=== PATIENT | female | born 1945 | race Caucasian/White ===

== ENCOUNTER 2025-05-01 15:07 | Emergency (ER) | payer MEDICARE, OTHER, MEDICAID, SELFPAY ==
--- NOTE | ~2025-05-01 | CT_ITS ---
EXAMINATION: CT abdomen pelvis w con DATE: 05/01/2025 22:07 INDICATION: Left lower quadrant abdominal pain. TECHNIQUE: Computed tomography (CT) of the abdomen and pelvis was performed with 100 mL Omnipaque 350 intravenous contrast. Automated exposure control and iterative reconstruction technique were employed. The dose-length product was 1091.81 mGy-cm. COMPARISON: None. FINDINGS: The visualized portions of lung bases demonstrate mild atelectasis. No pleural effusion. The heart size is normal. There are coronary artery calcifications. No pericardial effusion. Calcifications in the liver and spleen are consistent with old granulomatous disease. There are cysts in the liver measuring up to 5 mm. The gallbladder, pancreas, and adrenal glands are normal. There is a 2 mm stone in right kidney. There are cysts in left kidney measuring up to 7 mm. There is mild left hydronephrosis. There is wall thickening involving the distal transverse colon, descending colon, and sigmoid colon, consistent with colitis. The appendix is normal. There are no dilated loops of bowel. There are no pathologically enlarged lymph nodes. There is no ascites. There are bilateral hip arthroplasties. There is severe lumbar spondylosis. IMPRESSION: 1. Colitis involving the distal descending colon, descending colon, and sigmoid colon. 2. Mild left hydronephrosis. Reviewed, dictated and finalized at location E.
--- OUTSIDE RECORDS SUMMARY | 2025-05-01 15:11 | XMS_ITS | Clinical Summary ---
Author Organization [facility] Address [address] [place] [address] Care Team Providers Care Yard Associate Name Role Phone Denys Green Primary Care Provider [phone] Allergies Active Allergy Reactions Criticality Noted Date Comments Ojtwpdt-Gzq-Urx Reductase Inhibitors Swelling Medium 03/02/2021 Sulfa (Sulfonamide Antibiotics) Rash Medium 02/12 Medications metoprolol XL (TOPROL-XL) 25 mg extended release tablet Take 25 mg by mouth daily Active cholecalciferol (VITAMIN D-3) 2000 unit capsule Take 2,000 Units by mouth daily Active calcium carbonate (CALCIUM 500 ORAL) Take by mouth daily Active citalopram (CeleXA) 40 mg tablet Take 40 mg by mouth daily Active meloxicam (MOBIC) 15 mg tablet Take 15 mg by mouth daily Active valsartan (DIOVAN) 320 mg tablet Take 320 mg by mouth daily Active HYDROcodone-acet aminophen (NORCO) 10-325 mg per tabletIndication s:Pain Take 1 tablet by mouth every 6 (six) hours as needed for pain Active gabapentin (NEURONTIN) 300 mg capsule Take 300 mg by mouth 3 (three) times a day Active baclofen (LIORESAL) 10 mg tablet Take 10 mg by mouth 3 (three) times a day Active Active Problems Problem Noted Date Diagnosed Date Bilateral hip pain 12/01/2020 Assessment & Plan (12/01/2020 3:51 PM CDT): Ms. Consuelo Johnson has bilateral hip pain as her major complaint with pelvic and coccyx pain. She is status post fall in June of 2020. Her MRI imaging of her lumbar spine does not show significant compressive pathology to explain her symptoms. We will refer her to Orthopedic surgery for a formal evaluation as she has severe hip pain, decreased range of motion of her hips and a markedly positive KARIN sign bilaterally. We will not order films as I am worried that I will the wrong type of films. If the consult requires films prior to the visit, I would be happy to order the requested films. We will not set up a scheduled appointment, but I would be happy to see her back at any point in the future on as-needed basis. 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 Anxiety Depression Graves disease Left eye bulge - double vision at times Aneurysm of splenic artery 1.5 m m Sinus problem Arthritis Hypertension Peptic ulceration Osteoporosis Migraines Family History Medical History Relation Name Comments Stroke Father Cancer Maternal Grandmother Hypertension Mother Stroke Mother Arthritis Other Relation Name Status Comments Father Maternal Grandmother Mother Other Social History Tobacco Use Types Packs/Day Years Used Date Smoking Tobacco: Every Day Cigarettes PHQ-2 Answer Date Recorded PHQ-2 Total Score (If total score is 3 or more points, staff should administer the PHQ-9) 3 12/01/2020 Personal Safety Answer Date Recorded Getting School Help Needed Not on file 08/13 Comments Unknown Sex and Gender Information Value Date Recorded Sex Assigned at Not on file Legal Sex Female 6:03 PM BET TAKER Gender Identity Not on file Sexual Orientation Not on file Obstetrics History Last Filed Vital Signs Vital Sign Reading Time Taken Comments Blood Pressure 199/69 03/02/2021 2:36 PM CDT Pulse 78 03/02/2021 2:36 PM CDT Temperature - - Respiratory Rate 12 12/01/2020 3:19 PM CDT Oxygen Saturation - - Inhaled Oxygen Concentration - - Weight 55.8 kg (123 lb) 03/02/2021 2:16 PM CDT Height 166.4 cm (5' 5.5) 03/02/2021 2:16 PM CDT Body Mass Index 20.16 03/02/2021 2:16 PM CDT Plan of Treatment Not on file Insurance MEDICARE [facility] Address: [facility] [address] [place] [address] [employer] [facility] Care Teams Yard Associate Relationship Specialty Start Date End Date Denys Green DO PCP - General Internal Medicine 12/01/20
--- OUTSIDE RECORDS SUMMARY | 2025-05-01 15:11 | XMS_ITS | Clinical Summary ---
Author Organization [facility] Address [facility] [place] [address] Care Team Providers Care Recycle Driver Name Role Phone Richy Miller MD Primary Care Provider [phone] Allergies Active Allergy Reactions Criticality Noted Date Comments Statins Swelling Medium 03/02/2021 Sulfa Antibiotics Rash Medium 03/02/2021 Medications Cholecalciferol 50 MCG (1999) CapIndications:Mi neral Deficiency Take 2,000 Units by mouth daily. Indications: Mineral Deficiency Active TRELEGY ELLIPTA 100-62.5-25 MCG/ACT AEROSOL POWDER, BREATH ACTIVATEDIndicati ons:Shortness of breath Inhale 1 puff into the lungs daily. Indications: Shortness of breath 08/06/20 22 Active meloxicam (MOBIC) 15 MG tabletIndications :Pain Take 1 tablet (15 mg total) by mouth daily. Indications: Pain 06/09/20 22 Active triamcinolone (KENALOG) 0.1 % creamIndications: Rash and other nonspecific skin eruption Apply topically 2 (two) times daily as needed. Indications: Rash and other nonspecific skin eruption 09/28/19 22 Active valsartan (DIOVAN) 320 MG tabletIndications :Hypertension Take 1 tablet (320 mg total) by mouth daily. Indications: High Blood Pressure Disorder 06/27/20 22 Active amLODIPine (NORVASC) 5 MG tabletIndications :Hypertension Take 1 tablet (5 mg total) by mouth daily. Indications: High Blood Pressure Disorder Active morphine CR (MS CONTIN) 15 MG tabletIndications :Chronic Pain Take 1 tablet (15 mg total) by mouth 2 (two) times daily. Indications: Chronic Pain 07/19/20 23 Active OXYGENIndications :COPD exacerbation, uncomplicated 2 L/min by Nasal route as needed. Indications: COPD exacerbation, uncomplicated 03/19/20 Active metoprolol tartrate (LOPRESSOR) 50 MG tabletIndications :HTN Take 1 tablet (50 mg total) by mouth 2 (two) times daily. Indications: HTN 03/27/20 Active citalopram (CELEXA) 20 MG tabletIndications :Depression Take 1 tablet (20 mg total) by mouth daily. Indications: Depression 05/25/20 Active furosemide (LASIX) 20 MG tablet Take 1 tablet (20 mg total) by mouth daily. Active albuterol sulfate HFA 108 (90 Base) MCG/ACT inhaler inhale 2 puffs by mouth every 4 hours 01/01/20 Active Active Problems Problem Noted Date Diagnosed Date Primary osteoarthritis of left hip 06/29/2023 S/P total hip arthroplasty 03/17/2023 Family History Medical History Relation Comments Stroke Father Stroke Mother Relation Status Comments Father Mother Social History Tobacco Use Types Packs/Day Years Used Date Smoking Tobacco: Former Cigarettes Q uit: 08/13/2022 Passive Smoke Exposure: Never Smokeless Tobacco: Never Tobacco Cessation:Counseling Given: No Comments:Former, Quit 2021 Alcohol Use Standard Drinks/Week Comments Never 0 (1 standard drink = 0.6 oz pur e alcohol) none OASIS D0700: Social Isolation Answer Da te Recorded Frequency of experiencing loneliness or isolatio n Never 08/01/2023 OASIS A1250: Transportation Answer Date Recorded Lack of Transportation (Medical) No 08/01/2023 Lack of Transportation (Non-Medical) No 08/01/2023 Patient Unable or Declines to Respond No 08/01/2023 OASIS B1300: Health Literacy Answer Jw e Recorded Frequency of needing help to read materials from doctor or pharmacy Never 08/01/2023 [facility] Utilities Answer Date Recorded In the past 12 months has th e [employer], gas, oil, or water [employer] threatened to shut off services in your home? No 07/25/2023 Humiliation, Afraid, Rape, and Kick questionnair e Answer Date Recorded Within the last year, have y ou been afraid of your partner or ex-partner? No 07/25/2023 Within the last year, have y ou been humiliated or emotionally abused in other ways by your partner or ex-partner? No Within the last year, have y ou been kicked, hit, slapped, or otherwise physically hurt by your partner or ex-partner? No 07/25/2023 Within the last year, have y ou been raped or forced to have any kind of sexual activity by your partner or ex-partner? No 07/25/2023 Overall Financial Resource Strain (CARDIA) Answe r Date Recorded How hard is it for you to pa y for the very basics like food, housing, medical care, and heating? Not very hard 07/25/2023 PHQ-2 Answer Date Recorded Patient Health Questionnaire-2 Score 0 09/11/2023 Hunger Vital Sign Answer Date Recorded Within the past 12 months, y ou worried that your food would run out before you got the money to buy more. Never true 07/25/20 23 Within the past 12 months, t he food you bought just didn't last and you didn't have money to get more. Never true 07/25/2023 PRAPARE - Transportation Answer Date Re corded In the past 12 months, has l ack of transportation kept you from medical appointments or from getting medications? No 07/14 In the past 12 months, has l ack of transportation kept you from meetings, work, or from getting things needed for daily living? No 07/25/2023 Housing Stability Vital Sign Answer Jw e Recorded In the last 12 months, was t here a time when you were not able to pay the mortgage or rent on time? No 07/25/2023 In the last 12 months, how many places have you lived? 1 07/25/2023 In the last 12 months, was t here a time when you did not have a steady place to sleep or slept in a long-term (including now)? No 07/25/2023 Comments No Sex and Gender Information Value Date Recorded Sex Assigned at Not on file Legal Sex Female 1:15 PM CHILD PSYCHOLOGIST Gender Identity Not on file Sexual Orientation Not on file Last Filed Vital Signs Vital Sign Reading Time Taken Comments Blood Pressure 128/68 02/05/2024 9:15 AM CDT Pulse 45 02/05/2024 9:15 AM CDT Temperature 36.7 C (98 F) 02/05/2024 9:15 AM CDT Respiratory Rate 18 08/01/2023 10:21 AM CHILD PSYCHOLOGIST Oxygen Saturation 95% 02/05/2024 9:15 AM CDT Inhaled Oxygen Concentration - - Weight 77.4 kg (170 lb 9.6 oz) 02/05/2024 9:15 A M CDT Height 165.1 cm (5' 5) 02/05/2024 9:15 AM CDT Body Mass Index 28.39 02/05/2024 9:15 AM CDT Plan of Treatment Health Maintenance Due Date Last Done Comments Hepatitis C 1965 Zoster Vaccines (1 of 2) 1997 Annual Medicare Wellness Visit 2012 Dexa Scan (General) 2012 RSV Immunization or 60+ Years (1 - 1-dose 75+ series) 2022 PHQ-2 (Physician [place]) 08/14/2024 09/11/2023 COVID-19 Vaccine (3 - 2024-2 6 season) 2025 05/17/2021, 04/26/2021 DTaP, Tdap and Td Vaccines ( 3 - Td or Tdap) 12/27/2027 12/26/2017, 12/25/2017 Pneumococcal Vaccine: 50+ Years Completed 08/01/2017, 05/14/2016 Meningococcal B Vaccine Aged Out No l onger eligible based on patient's age to complete this topic Meningococcal Vaccine Aged Out No patel racheal eligible based on patient's age to complete this topic RSV Immunizations Under 20 Months Aged Out No longer eligible b ased on patient's age to complete this topic Medical Devices Implanted Type Area Box Sealing Machine Feeder Device Identifier Shelf Expiration Date Model / Serial / Lot Acetabular Shell Multi Hole 58mm Implanted:Qt y: 1 on 03/17/2023 by Сергей Bella MD at [facility] Hip Components Right: Acetabulum DEPUY [id number] 05/13/2029 8 / / [id number] Liner Depuy Acetabular Altrx Neut 36x58 - [id number] Implanted:Qt y: 1 on 03/17/2023 by Сергей Bella MD at [facility] Hip Components Right: Hip DEPUY [id number] 10/12/2027 [id number] / / [id number] Femoral Stem 07/27 Taper Actis Duofix Prosthesis Cementles Size 7 Std Implanted:Qt y: 1 on 03/17/2023 by Сергей Bella MD at [facility] Hip Components Right: Hip DEPUY SYNTHES [id number] 09/13/2032 1010-06-20 0 / / [id number] Head Depuy Femoral Delta 36mm +5 - [id number] Implanted:Qt y: 1 on 03/17/2023 by Сергей Bella MD at [facility] Hip Components Right: Hip DEPUY [id number] 01/12/2028 [id number] / / [id number] Cup Acetabular Shell Depuy 56mm - [id number] Implanted:Qt y: 1 on 07/25/2023 by Сергей Bella MD at [facility] Hip Components Left: Hip DEPUY [employer] [id number] 08/13/2032 6 / / [id number] Actis Femoral Stem Implanted:Qt y: 1 on 07/25/2023 by Сергей Bella MD at [facility] Hip Components Left: Hip DEPUY SYNTHES [id number] 02/10/2033 1010-06-20 0 / / [id number] Liner Depuy Acetabular Altrx Neut 36x56 - [id number] Implanted:Qt y: 1 on 07/25/2023 by Сергей Bella MD at [facility] Hip Components Left: Hip DEPUY [id number] 04/13/2028 [id number] / / [id number] Head Depuy Femoral Delta 36mm +8.5 - [id number] Implanted:Qt y: 1 on 07/25/2023 by Сергей Bella MD at [facility] Hip Components Left: Hip DEPUY [id number] 05/13/2028 [id number] / / [id number] Screw Depuy Cancellous Bone 6.5mm X 25mm - [id number] Implanted:Qt y: 1 on 03/17/2023 by Сергей Bella MD at [facility] Screw Right: Acetabulum DEPUY [id number] 12/11/2032 [id number] / / [id number] Canncelous Bone Screw [id number] Implanted:Qt y: 1 on 03/17/2023 by Сергей Bella MD at [facility] Screw Right: Acetabulum DEPUY 11/11/2032 0 / / [id number] Screw [place] Depuy 6.5 X 20mm - [id number] Implanted:Qt y: 1 on 03/17/2023 by Сергей Bella MD at [facility] Screw Right: Acetabulum DEPUY [id number] / / Screw Derby Depuy 6.5 X 20mm - [id number] Implanted:Qt y: 1 on 07/25/2023 by Сергей Bella MD at [facility] Screw Left: Hip DEPUY [id number] 11/11/2032 [id number] / / [id number] Screw Depuy Cancellous Bone 6.5mm X 25mm - [id number] Implanted:Qt y: 1 on 07/25/2023 by Сергей Bella MD at [facility] Screw Left: Hip DEPUY [id number] 01/11/2033 [id number] / / [id number] Insurance MEDICARE Advance Directives Documents on File Type Date Recorded Patient Special Services Agent Expl anation Power of Qc Manager 10/13/2022 POA 2022 * Full Code (Latest Code Status on File) Date Activated Date Inactivated Comments 08/23/2023 7:20 PM * Full Code Date Activated Date Inactivated Comments 07/27/2023 5:03 PM 07/28/2023 10:39 AM * Full Code Date Activated Date Inactivated Comments 07/25/2023 3:08 PM 07/26/2023 1:22 PM * Full Code Date Activated Date Inactivated Comments 03/20/2023 8:11 AM 07/25/2023 8:27 AM * Full Code Date Activated Date Inactivated Comments 03/19/2023 9:15 AM 03/20/2023 8:09 AM Care Teams Recycle Driver Relationship Specialty Start Date End Date Richy Miller MD [facility] [place] [address] PCP - General FAMILY MEDICINE SPORTS MEDICINE 08/24/22
[2025-05-01 15:25] VITALS: BP 93/44; PULSE 95; RESP 18; TEMP 37.1; O2SAT 97
[2025-05-01 20:17] LABS: Hematocrit 39.7 % (37.0-47.0); Hemoglobin 13.2 g/dL (12.0-15.0); Mean Corpuscular HGB Conc 33.2 g/dl (32-36); Mean Corpuscular Hemoglobin 28.8 pg (26-34); Mean Corpuscular Volume 86.5 fl (80-100); Platelet Count Result 311 k/mm3 (150-375); Red Blood Count 4.59 M/mm3 (4.2-5.4); White Blood Count 13.2 K/mm3 (4.5-10.0)
[2025-05-01 20:28] LABS: Alanine Aminotransferase 18 U/L (6-35); Albumin Level 3.4 g/dL (3.5-5.1); Alkaline Phosphatase 183 U/L (38-126); Anion Gap 10 mmol/L (4-12); Aspartate Amino Transferase 23 U/L (14-36); Bilirubin,Total 1.0 mg/dL (0.2-1.3); Blood Urea Nitrogen 49 mg/dL (7-17); Calcium 8.4 mg/dL (8.4-10.2); Carbon Dioxide 27 mmol/L (22-30); Chloride 87 mmol/L (98-107); Estimated CRCL calculation 26 ml/min; Estimated Glomerular Filt Rate 34; Glucose 112 mg/dL (65-110); Potassium 4.1 mmol/L (3.4-5.0); Sodium 124 mmol/L (137-145); Total Protein 6.9 g/dL (6.3-8.2)
[2025-05-01 20:33] LABS: Band Neutrophils Percent 6 % (0-6); Lymphocytes Absolute Manual 1.58 K/mm3 (1.1-4.5); Lymphocytes Percent Manual 12.0 % (18-44); Monocytes Absolute Manual 0.52 K/mm3 (0.1-0.90); Monocytes Percent Manual 4 % (3-9); Neutrophils Absolute Manual 11.08 K/mm3 (1.3-6.7); Neutrophils Percent Manual 78 % (46-73); Schistocytes None Seen; Total Cells Counted 100
[2025-05-01] MEDS: LACTATED RINGERS 1,000 ML 999 ML IV CONT (20:41)
[2025-05-01 20:46] VITALS: BP 103/56; PULSE 89; RESP 18; O2SAT 97
[2025-05-01 21:02] LABS: Add Urine Microscopic? YES; Appearance Urine Cloudy (Clear); Glucose Urine UA Negative (Negative); Leukocyte Esterase Ur Trace LEU/UL (Negative); Need Manual Microscopic Reviewed; Nitrate Urine Negative (Negative); Non Pathogenic Casts >20; Specific Grav Ur 1.017 (1.001-1.035)
[2025-05-01 22:09] VITALS: BP 128/58; PULSE 87; RESP 18; TEMP 36.6; O2SAT 97
--- NOTE | 2025-05-02 00:24 | ED_ITS ---
HPI - Abdominal Pain General Chief Complaint: Abdominal Pain Stated Complaint: abd pain Time Seen by Provider: 05/01/25 19:51 History of Present Illness HPI narrative: Patient presenting here with left lower quadrant pain, ongoing for last few days, with nausea vomiting, though it is better today. Her doctor wants her to be checked out for diverticulitis she has no history of this Related Data Allergies Allergy/AdvReac Type Severity Reaction Status Date / Time Ozurptw-IQK-HaK Reductase Allergy Unknown affect Verified 05/01/25 15:10 Inhibitor (Ozyyvsf-Kao-Qjz liver/muscle Reductase Inhibitor) Review of Systems 2 Review of Systems: All systems reviewed & are unremarkable except as noted in HPI and below PMFSH Family History Family History (Updated 02/19/19 @ 15:37 by DOCTOR UNKNOWN) Sibling Family history of bipolar disorder Mother Hypertension Patient's mother is Father Family history of transient ischemic attacks Family history of elevated blood lipids Patient's father is Social History Social History Second hand tobacco smoke exposure: No Smoking end date: 08/14/12 Alcohol intake: never Exam 2 Narrative: EXAMINATION OF ORGAN SYSTEMS/BODY AREAS: Constitutional: Vital signs per nursing GENERAL:[No acute distress, non-toxic appearing.] HEAD: Normal with no signs of head trauma. EYES: EOMI, conjunctiva normal ENT: Hearing grossly intact LUNGS: Nonlabored breathing. HEART: [Regular rate and rhythm] ABD: [Soft], [nontender to palpation] EXT: Normal range of motion SKIN: [No rashes or lesions.] NEURO: [Alert and oriented x 3. No gross focal sensory or strength deficits.] PSYCH: Normal affect Course Vital Signs Vital signs: Vital Signs Temperature 98.8 F 05/01/25 15:25 Pulse Rate 95 05/01/25 15:25 Respiratory Rate 18 05/01/25 15:25 Blood Pressure 93/44 L 05/01/25 15:25 Pulse Oximetry 97 05/01/25 15:25 Temperature 97.8 F 05/01/25 22:09 Pulse Rate 79 05/02/25 03:31 Respiratory Rate 18 05/02/25 03:31 Blood Pressure 111/58 L 05/02/25 03:31 Pulse Oximetry 95 05/02/25 03:31 MDM - Abdominal Pain MDM Narrative Medical decision making narrative: Electronic medical record was reviewed. Patient presented to the ED with complaint of [abdominal pain and vomiting for last few days, now resolved]. Vitals [were within acceptable limits]. Physical exam revealed soft abdomen without focal tenderness. Based on the patient's history and physical exam, my differential includes but is not limited to [gastritis, gastroenteritis, diverticulitis]. [IV access was established by nursing staff. Patient was given IV fluids]. CBC, BMP, lipase, LFTs, bilirubin and alk phos were obtained. Labs were pertinent for sodium 124, creatinine 1.5 however unknown baseline. [Decision was made to obtain a CT-abdomen to evaluate for acute abdominal process. CT-abdomen per radiology interpretation shows acute colitis.] On reevaluation, the patient states that they are feeling much better. She would like to go home. There were no witnessed episodes of vomiting in the emergency department. They are not complaining of any new abdominal pain. Repeat examination did not show any significant guarding or rebound. No new tenderness. At this time I do not feel there is any further emergent treatment to be provided. The patient was given strict return precautions, if they are to develop any worsening abdominal pain, vomiting, or blood in the vomit they are to return to the emergency department immediately. Patient verbally acknowledges understanding these directions. [The patient was informed of the above diagnostic test findings.] No further workup is necessary at this time. They will be discharged home. They were advised to follow-up with their PCP and Gastroenterology in 2 days for repeat labs and re-evaluation. The patient feels that this is appropriate medical decision making and verbalizes an understanding of the discharge instructions. Discharge happened during down time and discharge paperwork provided on paper Lab Data 05/01/25 20:12 05/01/25 20:12 Labs: Lab Results 05/01/25 05/01/25 Range/Units 20:12 20:43 WBC 13.2 H (4.5-10.0) K/mm3 RBC 4.59 (4.2-5.4) M/mm3 Hgb 13.2 (12.0-15.0) g/dL Hct 39.7 (37.0-47.0) % MCV 86.5 (80-100) fl MCH 28.8 (26-34) pg MCHC 33.2 (32-36) g/dl RDW 13.9 (11.5-14.5) % Plt Count 311 (150-375) k/mm3 MPV 9.5 (7.4-10.4) fl Immature Gran % (Auto) Not Reportable Neut % (Auto) Not Reportable Lymph % (Auto) Not Reportable [place] % (Auto) Not Reportable Eos % (Auto) Not Reportable Baso % (Auto) Not Reportable Lymph # (Auto) Not Reportable [place] # (Auto) Not Reportable Eos # (Auto) Not Reportable Baso # (Auto) Not Reportable Abs Immat Gran (auto) Not Reportable Absolute Neuts (auto) Not Reportable Absolute Nucleated RBC Not Reportable Total Counted 100 Neutrophils % (Manual) 78 H (46-73) % Band Neutrophils % 6 (0-6) % Lymphocytes % (Manual) 12.0 L (18-44) % Monocytes % (Manual) 4 (3-9) % Nucleated RBC % Not Reportable Abs Neuts (Manual) 11.08 H (1.3-6.7) K/mm3 Abs Lymphs (Manual) 1.58 (1.1-4.5) K/mm3 Abs Monocytes (Manual) 0.52 (0.1-0.90) K/mm3 Platelet Estimate Increased (Adequate) Large Platelets Present Schistocytes None seen Sodium 124 L (137-145) mmol/L Potassium 4.1 (3.4-5.0) mmol/L Chloride 87 L (98-107) mmol/L Carbon Dioxide 27 (22-30) mmol/L Anion Gap 10 (4-12) mmol/L BUN 49 H (7-17) mg/dL Creatinine 1.49 H (0.7-1.0) mg/dL Estim Creat Clear Calc 26 ml/min Estimated GFR 34 L (59 - ) Glucose 112 H (65-110) mg/dL Lactic Acid 1.0 (0.7-2.0) mmol/L Calcium 8.4 (8.4-10.2) mg/dL Total Bilirubin 1.0 (0.2-1.3) mg/dL AST 23 (14-36) U/L ALT 18 (6-35) U/L Alkaline Phosphatase 183 H (38-126) U/L Total Protein 6.9 (6.3-8.2) g/dL Albumin 3.4 L (3.5-5.1) g/dL Urine Color Dark yellow (Yellow) Urine Appearance Cloudy H (Clear) Urine pH 5.0 (5.0-9.0) Ur Specific [place] 1.017 (1.001-1.035) Urine Protein 1+ H (Negative) mg/dL Urine Glucose (UA) Negative (Negative) mg/dL Urine Ketones Trace H (Negative) mg/dL Ur Blood (Man) Negative (Negative) Urine Nitrate Negative (Negative) Urine Bilirubin 2+ H (Negative) Urine Urobilinogen 1.0 (<2.0) mg/dL Add Ur Microanalysis Reviewed Leukocyte Esterase Rfl Trace H (Negative) BETH/UL Urine RBC 3-5 H (0-2) /hpf Urine WBC 0-5 (0-3) /hpf Ur Squamous Epith Cells Moderate (Few) /hpf Urine Bacteria Rare /hpf Urine Casts >20 Hyaline Casts Present (None) /lpf Discharge Plan Discharge Clinical Impression: Colitis, Hyponatremia Patient Disposition: Home Condition: Stable Instructions: Hyponatremia (ED), Colitis (ED) Patient Language: [place] Follow-up/Referrals: PHYSICIAN NOT ON STAFF,NONSTAFF [Primary Care Provider]
[2025-05-02 00:50] VITALS: BP 131/48; PULSE 78; RESP 18; O2SAT 94
[2025-05-02 03:31] VITALS: BP 111/58; PULSE 79; RESP 18; O2SAT 95
== END 2025-05-02 01:40 | disposition home or self-care (01) ==
LOC: ANHED 20:03
PROVIDERS: Emergency Provider Emergency Medicine
DX: K52.9 Noninfective gastroenteritis and colitis, unspecified (principal); E87.1 Hypo-osmolality and hyponatremia; Z87.891 Personal history of nicotine dependence
CPT/HCPCS: 36415; 74177; 80053; 81001; 83605; 85025; 96360; 99284; J7120; Q9967

== ENCOUNTER 2025-06-16 13:45 | Outpatient (CLI) | payer MEDICARE, OTHER, MEDICAID, SELFPAY ==
[2025-06-16 14:17] LABS: Hematocrit 39.5 % (37.0-47.0); Hemoglobin 12.3 g/dL (12.0-15.0); Mean Corpuscular HGB Conc 31.1 g/dl (32-36); Mean Corpuscular Hemoglobin 27.7 pg (26-34); Mean Corpuscular Volume 89.0 fl (80-100); Platelet Count Result 309 k/mm3 (150-375); Red Blood Count 4.44 M/mm3 (4.2-5.4); White Blood Count 9.2 K/mm3 (4.5-10.0)
[2025-06-16 14:36] LABS: Alanine Aminotransferase 15 U/L (6-35); Albumin Level 3.4 g/dL (3.5-5.1); Alkaline Phosphatase 130 U/L (38-126); Anion Gap 3 mmol/L (4-12); Aspartate Amino Transferase 29 U/L (14-36); Bilirubin,Total 0.5 mg/dL (0.2-1.3); Blood Urea Nitrogen 12 mg/dL (7-17); Calcium 8.5 mg/dL (8.4-10.2); Carbon Dioxide 30 mmol/L (22-30); Chloride 103 mmol/L (98-107); Estimated Glomerular Filt Rate 56; Glucose 105 mg/dL (65-110); Potassium 3.8 mmol/L (3.4-5.0); Sodium 136 mmol/L (137-145); Total Protein 6.9 g/dL (6.3-8.2)
== END 2025-06-16 13:46 | disposition home or self-care (01) ==
PROVIDERS: PCP Family Medicine; Visit Provider Nurse Practitioner Family
DX: K62.5 Hemorrhage of anus and rectum (principal); R19.7 Diarrhea, unspecified; E87.1 Hypo-osmolality and hyponatremia; R74.8 Abnormal levels of other serum enzymes
CPT/HCPCS: 36415; 80048; 80076; 85027

== ENCOUNTER 2025-06-18 10:18 | Outpatient (CLI) | payer MEDICARE, OTHER, MEDICAID, SELFPAY ==
--- OUTSIDE RECORDS SUMMARY | 2008-10-16 18:00 | XMS_ITS | Continuity of Care Document ---
Author Organization [facility] Address [address] [place] [address] Phone Care Team Providers Care Wire Stitcher Operator Name Role Phone Lis Ritchie Unavailable Unavailable Procedures Procedure Date Special Reports Or Forms Office/outpatient Visit, Est Advance Directives Directive Yes / No Effective Date File Name No Information Encounters Encounter Description Practice Location Reason(s) For Visit Diagnoses Date Provider Providers Copied on Encounter [facility], [address] [place] [address] [address], [place], [place], [id number], tel:[phone] SEC [facility] No Information Oct- 6200 9 Erma Vu [address] [facility] , [address], [place], [place], [facility], [place]. tel:[phone] Office/outpat ient Visit, Est [facility], [address] [place] [address] [address], [place], [place], [id number], tel:[phone] SEC [facility] No Information 6200 8 Erma Vu [address] [facility] , [address], [place], [address], [place]. tel:[phone] Family History Family Member Type Diagnosis Age At Onset No Information Payers Payer name Insurance type Covered republican ID Authoriza tion(s) No Information Social History Type Description Quantity Date Captured Comments Sex Female Smoking Status No Information Chief Complaint And Reason For Visit No Information Reason For Referral Reason For Referral No Information History Of Present Illness Encounter Date Complaint History Of Prese nt Illness No Information Functional Status Date Functional Assessmen t No Information Instructions Date Instruction Additional Infor mation No Information Assessments Type Assessment Date No Information Patient Care Teams Name Effective Dates (start - stop) Status Members No Information
--- OUTSIDE RECORDS SUMMARY | 2008-10-16 18:00 | XMS_ITS | Continuity of Care Document ---
Author Organization [facility] Address [address] [place] [address] Phone Care Team Providers Care Section Hand Name Role Phone Lis Ritchie Unavailable Unavailable Procedures Procedure Date Special Reports Or Forms Office/outpatient Visit, Est Advance Directives Directive Yes / No Effective Date File Name No Information Encounters Encounter Description Practice Location Reason(s) For Visit Diagnoses Date Provider Providers Copied on Encounter [facility], [address] [place] [address] [address], [place], [place], [id number], tel:[phone] SEC [facility] No Information Oct-0 6200 9 Erma [address] [facility] , [address], [place], [place], [facility] [place], [place]. tel:[phone] Office/outpat ient Visit, Est [facility], [address] [place] [address] [address], [place], [place], [id number], tel:[phone] [facility] No Information [address] [facility] , [address], [place], [address], [place]. tel:[phone] Family History Family Member Type Diagnosis Age At Onset No Information Payers Payer name Insurance type Covered green party ID Authoriza tion(s) No Information Social History [...]
--- OUTSIDE RECORDS SUMMARY | 2025-06-19 18:34 | XMS_ITS | Clinical Summary ---
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
--- OUTSIDE RECORDS SUMMARY | 2025-06-19 18:34 | XMS_ITS | Clinical Summary ---
Author Organization [facility] Address [facility] [place] [address] Care Team Providers Care Tank Car Inspector Name Role Phone Richy Miller MD Primary Care Provider [phone] Allergies Active Allergy Reactions Criticality Noted Date [...] materials from doctor or pharmacy Never 08/01/2023 [facility] Utilities Answer Date Recorded In the past 12 months has th e [employer], gas, oil, or water [place] threatened to shut off services in your [...] place to sleep or slept in a prison (including now)? 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 Gender Identity Not on file Sexual Orientation Not on file Last Filed Vital Signs Vital Sign Reading Time Taken Comments Blood Pressure 128/68 02/05/2024 9:15 AM CDT Pulse 45 02/05/2024 9:15 AM CDT Temperature 36.7 C (98 F) 02/05/2024 9:15 AM CDT Respiratory Rate 18 08/01/2023 10:21 AM RADIOTELEGRAPH OPERATOR Oxygen Saturation 95% 02/05/2024 9:15 AM CDT [...] - 1-dose 75+ series) 2022 PHQ-2 (Physician [place]) 08/14/2024 09/11/2023 COVID-19 Vaccine (3 - 2024-2 6 season) 2025 05/17/2021, 04/26/2021 Influenza Adult (#1) 2025 08/01/2017 DTaP, Tdap and Td Vaccines ( 3 - Td or Tdap) 12/27/2027 12/26/2017, 12/25/2017 Pneumococcal Vaccine: 50+ Years Completed 08/01/2017, 05/14/2016 Hepatitis A Vaccines Aged Out No long er eligible based on patient's age to complete this topic Meningococcal B Vaccine Aged Out No l onger eligible based on patient's age to complete this topic Meningococcal Vaccine Aged Out No patel racheal eligible based on patient's age to complete this topic RSV Immunizations Under 20 Months Aged Out No longer eligible b ased on patient's age to complete this topic Medical Devices Implanted Type Area Back Tender Cloth Printing Device Identifier Shelf Expiration Date Model / Serial / Lot Acetabular Shell Multi Hole 58mm Implanted:Qt y: 1 on 03/17/2023 by Сергей Bella MD at [facility] Hip Components Right: Acetabulum DEPUY [id number] 05/13/2029 8 / / [id number] Liner Depuy Acetabular Altrx Neut 36x58 - [id number] Implanted:Qt y: 1 on 03/17/2023 by Сергей Bella MD at [facility] Hip Components Right: Hip DEPUY [id number] 10/12/2027 [id number] / / [id number] Femoral Stem 07/27 Taper Actis Duofix Prosthesis Cementles Size 7 Std Implanted:Qt y: 1 on 03/17/2023 by Сергей Bella MD at [facility] Hip Components Right: Hip DEPUY SYNTHES [id number] 09/13/203210091010-06-20 0 / / [id number] Head Depuy Femoral Delta 36mm +5 - [id number] Implanted:Qt y: 1 on 03/17/2023 by Сергей Bella MD at [facility] Hip Components Right: Hip DEPUY [id number] 01/12/2028 [id number] / / [id number] Cup Acetabular Shell Depuy 56mm - [id number] Implanted:Qt y: 1 on 07/25/2023 by Сергей Bella MD at [facility] Hip Components Left: Hip DEPUY [employer] - [employer] [id number] 08/13/2032 6 / / [id number] Actis Femoral Stem Implanted:Qt y: 1 on 07/25/2023 by Сергей Bella MD at [facility] Hip Components Left: Hip DEPUY SYNTHES [id number] 02/10/20331010-061010-06-20 0 / / [id number] Liner Depuy Acetabular Altrx Neut 36x56 - [id number] Implanted:Qt y: 1 on 07/25/2023 by Сергей Bella MD at [facility] Hip Components Left: Hip DEPUY [id number] 04/13/2028 [id number] / / [id number] Head Depuy Femoral Delta 36mm +8.5 - [id number] Implanted:Qt y: 1 on 07/25/2023 by Сергей Bella MD at [facility] Hip Components Left: Hip DEPUY [id number] 05/13/2028 [id number] / / [id number] Screw Depuy Cancellous Bone 6.5mm X 25mm - [id number] Implanted:Qt y: 1 on 03/17/2023 by Сергей Bella MD at [facility] Screw Right: Acetabulum DEPUY [id number] 12/11/2032 [id number] / / [id number] Canncelous Bone Screw 6.4ygi02iv Implanted:Qt y: 1 on 03/17/2023 by Сергей Bella MD at [facility] Screw Right: Acetabulum DEPUY 11/11/2032 0 / / [id number] Screw [place] Depuy 6.5 X 20mm - [id number] Implanted:Qt y: 1 on 03/17/2023 by Сергей Bella MD at [facility] Screw Right: Acetabulum DEPUY [id number] / / Screw [place] Depuy 6.5 X 20mm - [id number] Implanted:Qt y: 1 on 07/25/2023 by Сергей Bella MD at [facility] Screw Left: Hip DEPUY [id number] 11/11/2032 [id number] / / [id number] Screw Depuy Cancellous Bone 6.5mm X 25mm - [id number] Implanted:Qt y: 1 on 07/25/2023 by Сергей Bella MD at 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
[2025-06-22 20:07] LABS: Pancreatic Elastase, Fecal 35 (>200)
--- OUTSIDE RECORDS SUMMARY | 2025-06-23 06:20 | XMS_ITS | Clinical Summary ---
Author Organization [facility] Address [facility] [address] [facility] [place] [address] Care Team Providers Care Merchandise Shopper Name Role Phone Richy Miller MD Primary Care Provider [phone] Allergies Active Allergy Reactions Criticality Noted Date [...] materials from doctor or pharmacy Never 08/01/2023 [facility] Utilities Answer Date Recorded In the past 12 months has th e [employer], gas, oil, or water [place] threatened to shut off services in your [...] place to sleep or slept in a usp (including now)? 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 Gender Identity Not on file Sexual Orientation Not on file Last Filed Vital Signs Vital Sign Reading Time Taken Comments Blood Pressure 128/68 02/05/2024 9:15 AM CDT Pulse 45 02/05/2024 9:15 AM CDT Temperature 36.7 C (98 F) 02/05/2024 9:15 AM CDT Respiratory Rate 18 08/01/2023 10:21 AM TRUCK CAR AND BUS CLEANER Oxygen Saturation 95% 02/05/2024 9:15 AM CDT [...] - 1-dose 75+ series) 2022 PHQ-2 (Physician [place]) 08/14/2024 09/11/2023 COVID-19 Vaccine (3 - 2024-2 [...] this topic Medical Devices Implanted Type Area Salicylic Acid Blender Device Identifier Shelf Expiration Date Model / Serial / Lot Acetabular Shell Multi Hole 58mm Implanted:Qt y: 1 on 03/17/2023 by Сергей Bella MD at [facility] Hip Components Right: Acetabulum DEPUY [id number] 05/13/2029 8 / / [id number] Liner Depuy Acetabular Altrx Neut 36x58 - [id number] Implanted:Qt y: 1 on 03/17/2023 by Сергей Bella MD at [facility] Hip Components Right: Hip DEPUY [id number] 10/12/2027 [id number] / / [id number] Femoral Stem 07/27 Taper Actis Duofix Prosthesis Cementles Size 7 Std Implanted:Qt y: 1 on 03/17/2023 by Сергей Bella MD at [facility] Hip Components Right: Hip DEPUY SYNTHES [id number] 09/13/203210091010-06-20 0 / / [id number] Head Depuy Femoral Delta 36mm +5 - [id number] Implanted:Qt y: 1 on 03/17/2023 by Сергей Bella MD at [facility] Hip Components Right: Hip DEPUY [id number] 01/12/2028 [id number] / / [id number] Cup Acetabular Shell Depuy 56mm - [id number] Implanted:Qt y: 1 on 07/25/2023 by Сергей Bella MD at [facility] Hip Components Left: Hip DEPUY [employer] - [employer] [id number] 08/13/2032 6 / / [id number] Actis Femoral Stem Implanted:Qt y: 1 on 07/25/2023 by Сергей Bella MD at [facility] Hip Components Left: Hip DEPUY SYNTHES [id number] 02/10/20331010-061010-06-20 0 / / [id number] Liner Depuy Acetabular Altrx Neut 36x56 - [id number] Implanted:Qt y: 1 on 07/25/2023 by Сергей Bella MD at [facility] Hip Components Left: Hip DEPUY [id number] 04/13/2028 [id number] / / [id number] Head Depuy Femoral Delta 36mm +8.5 - [id number] Implanted:Qt y: 1 on 07/25/2023 by Сергей eBlla MD at [facility] Hip Components Left: Hip DEPUY [id number] 05/13/2028 [id number] / / [id number] Screw Depuy Cancellous Bone 6.5mm X 25mm - [id number] Implanted:Qt y: 1 on 03/17/2023 by Сергей Bella MD at [facility] Screw Right: Acetabulum DEPUY [id number] 12/11/2032 [id number] / / [id number] Canncelous Bone Screw 6.5kwv03mn Implanted:Qt y: 1 on 03/17/2023 by Сергей Bella MD at [facility] Screw Right: Acetabulum DEPUY 11/11/2032 0 / / [id number] Screw [place] Depuy 6.5 X 20mm - [id number] Implanted:Qt y: 1 on 03/17/2023 by Сергей Bella MD at [facility] Screw Right: Acetabulum DEPUY [id number] / / Screw [place] Depuy 6.5 X 20mm - [id number] Implanted:Qt y: 1 on 07/25/2023 by Сергей Bella MD at [facility] Screw Left: Hip DEPUY [id number] 11/11/2032 [id number] / / [id number] Screw Depuy Cancellous Bone 6.5mm X 25mm - [id number] Implanted:Qt y: 1 on 07/25/2023 by Сергей Bella MD at [facility] Screw Left: Hip DEPUY [id number] 01/11/2033 [id number] / / [id number] Insurance MEDICARE Advance Directives Documents on File Type Date Recorded Patient Social Director Expl anation Power of Ship Engines Operating Engineer 10/13/2022 POA 2022 * Full Code (Latest [...] 9:15 AM 03/20/2023 8:09 AM Care Teams Merchandise Shopper Relationship Specialty Start Date End Date Richy Miller MD [address] [place] [address] PCP - General FAMILY MEDICINE SPORTS MEDICINE 08/24/22
--- OUTSIDE RECORDS SUMMARY | 2025-06-23 06:20 | XMS_ITS | Clinical Summary ---
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
[2025-06-24 08:08] LABS: Calprotectin, Fecal 5930 ug/g (0-120)
== END 2025-06-18 11:20 | disposition home or self-care (01) ==
PROVIDERS: PCP Family Medicine; Visit Provider Nurse Practitioner Family
DX: R19.7 Diarrhea, unspecified (principal); R10.32 Left lower quadrant pain
CPT/HCPCS: 82653; 83993; 87045; 87046; 87427